=== PATIENT | female | born 1965 | race Two or more races ===

== ENCOUNTER 2020-11-26 15:11 | Emergency (ER) | payer MEDICAID, OTHER ==
[~2020-11-26] VITALS: Ht 162.6 cm; Wt 131.5 kg
[2020-11-26] MEDS ORDERED: ASPirin 81 mg TAB PO ONE (15:30)
[2020-11-26 16:06] LABS: Basophils # (auto) 0.1 10 ^3/uL (0-0.2); Basophils % (auto) 0.7 % (0.0-2.0); Eosinophils # (auto) 0.1 10 ^3/uL (0-0.8); Eosinophils % (auto) 1.6 % (0.0-7.0); Hematocrit 41.8 % (36.0-46.0); Lymphocytes # (auto) 2.1 10 ^3/uL (0.4-5.4); Lymphocytes % (auto) 23.9 % (10.0-50.0); Mean Corpuscular Hemoglobin 29.7 pg (28.0-32.0); Mean Corpuscular Hgb Conc. 33.5 g/dL (32.0-36.0); Mean Corpuscular Volume 88.5 fL (80.0-100.0); Monocytes # (auto) 0.4 10 ^3/uL (0-1.3); Monocytes % (auto) 4.6 % (0.0-12.0); Neutrophils % (auto) 69.2 % (37.0-80.0); Nucleated Red Blood Cells % 0.1 %; Red Blood Cells 4.72 10^6/uL (4.0-5.20); Red Cell Distribution Width 13.7 % (11.8-14.3); White Blood Cell 8.7 10^3/uL (4.4-10.8)
[2020-11-26 16:25] LABS: Alanine Aminotransferase 50 U/L (13-56); Albumin 3.7 g/dL (3.4-5.0); Anion Gap 5 (5-15); Aspartate Aminotransferase 22 U/L (15-37); BUN/Creatinine Ratio 20.2; Blood Urea Nitrogen 17 mg/dL (7-18); Calcium 9.4 mg/dL (8.5-10.1); Carbon Dioxide 29 mmol/L (21-32); Chloride 108 mmol/L (98-107); GFR African American 90 mL/min; GFR Non-African American 75 mL/min; Glucose 112 mg/dL (74-106); Sodium 142 mmol/L (136-145)
[2020-11-26 16:30] LABS: Alkaline Phosphatase 105 U/L (45-117); Bilirubin, Total 0.6 mg/dL (0.2-1.0); Total Protein 7.1 g/dL (6.4-8.2)
[2020-11-26 19:38] VITALS: BP 152/81
== END 2020-11-26 19:45 | disposition home or self-care (01) ==
LOC: ER 15:11
DX: I24.9 Acute ischemic heart disease, unspecified (principal); I10 Essential (primary) hypertension
CPT/HCPCS: 36415; 71045; 80053; 84484; 85025; 93005

== ENCOUNTER 2023-02-27 22:31 | Emergency (ER) | payer MEDICAID ==
[~2023-02-27] VITALS: Ht 162.6 cm; Wt 134.8 kg
[2023-02-27 22:35] VITALS: BP 158/82; PULSE 18; RESP 18; TEMP 98.3; O2SAT 95
== END 2023-02-28 00:18 | disposition home or self-care (01) ==
LOC: ER 22:31
DX: S60.352A Superficial foreign body of left thumb, initial encounter (principal); M25.561 Pain in right knee; M25.562 Pain in left knee; I10 Essential (primary) hypertension; W22.8XXA Striking against or struck by other objects, initial encounter; Y93.89 Activity, other specified; Y92.89 Other specified places as the place of occurrence of the external cause; Y99.8 Other external cause status

== ENCOUNTER 2025-01-02 18:48 | Emergency (ER) | payer MEDICAID ==
[~2025-01-02] VITALS: Ht 162.6 cm; Wt 134.9 kg
--- NOTE | 2025-01-02 19:27 | DVH ---
CLINICAL HISTORY: left ankle pain TECHNIQUE: 3 views of the left ankle were obtained. COMPARISON: XY L FOOT 3 VIEW XRAY on DOS: 01/02/25 FINDINGS: No acute fracture or dislocation is seen. The ankle mortise is intact. There are mild degenerative ch anges of the tibiotalar joint with osteophyte formation. There is generalized soft tissue swelling. T here is a small to moderate plantar calcaneal spur. Is [id number] enthesophyte at the calcaneal insertion of the Achilles tendon. IMPRESSION: Soft tissue swelling. No acute fracture seen.
--- NOTE | 2025-01-02 19:27 | DVH ---
CLINICAL HISTORY: left foot pain TECHNIQUE: 3 views of the left foot were obtained. COMPARISON: XY L ANKLE 3 VIEW on DOS: 01/02/25 FINDINGS: There is an acute oblique fracture through the mid / distal shaft of the 5th metatarsal with slight d isplacement. No additional fracture is seen. There is small to moderate plantar calcaneal spur. Ther e is small to moderate enthesophyte of the calcaneus near the Achilles tendon. There is soft tissue s welling. There are mild degenerative changes of the 1st MTP joint with osteophyte formation. IMPRESSION: Acute 5th metatarsal fracture.
[2025-01-02] MEDS ORDERED: IBUP-1456 PO (21:28)
--- NOTE | 2025-01-02 21:29 | ED.PDOC ---
Musculoskeletal HPI Comments 59-YEAR-OLD FEMALE PRESENTS TO ER WITH COMPLAINTS OF LEFT FOOT PAIN X FIVE DAYS. PATIENT REPORTS SHE STARTED EXPERIENCING PAIN/SWELLING TO LATERAL ASPECT OF LEFT FOOT WITH RADIATION TOWARDS HER LEFT ANKLE S/P ROLLING HER LEFT FOOT/LEFT ANKLE INWARDS WHILE ACCIDENTALLY STEPPING INTO A HOLE IN HER YARD 5 DAYS AGO. SHE RATES HER CURRENT PAIN A 5/10 AND PRESENTS TO ER AMBULATORY ON ARRIVAL, FAVORING RIGHT LEG ON AMBULATION. DENIES NUMBNESS/TINGLING AND ENDORSES NO FURTHER SYMPTOMS/COMPLAINTS Chief Complaint: Lower Extremity Time Seen by MD: 18:55 Primary Care Provider: DR. OSBORNE Reviewed Notes: Nurses Notes, Medications, Allergies Allergies: Coded Allergies: No Known Drug Allergy (Verified Allergy, Unknown, 11/26/20) Home Meds Active Scripts Ibuprofen (Ibuprofen) 800 Mg Tab, 1 TAB PO TID PRN, #30 TAB 0 Refills Prov:KERRY KEITA 01/02/25 Information Source: Patient Mode of Arrival: Ambulatory Past Medical History PAST MEDICAL HISTORY: HTN Surgical History: Denies all surgeries [employer] History: No Pertinent [employer] History Family History Family History: Unknown Social History Smoker: Non-Smoker Alcohol: Denies ETOH Use Drugs: Denies Drug Use Lives In: Home Constitutional: denies: chills, diaphoresis, fatigue, fever, malaise, sweats, weakness, others EENTM: denies: blurred vision, double vision, ear bleeding, ear discharge, ear drainage, ear pain, ear ringing, eye pain, eye redness, hearing loss, mouth pain, mouth swelling, nasal discharge, nose bleeding, nose congestion, nose pain, photophobia, tearing, throat pain, throat swelling, voice changes, others Respiratory: denies: cough, hemoptysis, orthopnea, SOB at rest, shortness of breath, SOB with excertion, stridor, wheezing, others Cardiovascular: denies: chest pain, dizzy spells, diaphoresis, Dyspnea on exertion, edema, irregular heart beat, left arm pain, lightheadedness, palpitations, PND, syncope, others Gastrointestinal: denies: abdomen distended, abdominal pain, blood streaked bowels, constipated, diarrhea, dysphagia, difficulty swallowing, hematemesis, melena, nausea, poor appetite, poor fluid intake, rectal bleeding, rectal pain, vomiting, others Genitourinary: denies: abnormal vagina bleeding, burning, dyspareunia, dysuria, flank pain, frequency, hematuria, incontinence, pain, , vagina discharge, urgency, others Neurological: denies: dizziness, fainting, headache, left sided numbness, left sided weakness, numbness, paresthesia, pre-existing deficit, right sided numbness, right sided weakness, seizure, speech problems, tingling, tremors, weakness, others Musculoskeletal: reports: others ( STATED IN HPI) Integumetry: reports: others ( STATED IN HPI) Allergic/Immunocompromised: denies: Difficulty Healing, Frequent Infections, Hives, Itching, others Hematologic/Lymphatic: denies: anemia, blood clots, easy bleeding, easy bruising, swollen glands, others Endocrine: denies: excessive hunger, excessive sweating, excessive thirst, excessive urination, flushing, intolerance to cold, intolerance to heat, unexplained weight gain, unexplained weight loss, others Psychiatric: denies: anxiety, bipolar disorder, depression, hopeless, panic disorder, schizophrenia, sleepless, suicidal, others Physical Exam General Appearance: Mild Distress HEENT: PERRL/EOMI Neck: Full Range of Motion, Non-Tender, Normal Respiratory: Chest Non-Tender, Lungs Clear, No Accessory Muscle Use, No Respiratory Distress, Normal Breath Sounds Cardiovascular: No Murmur, No Gallop, Regular Rate/Rhythm Breast Exam: Deferred Gastrointestinal: NOT DONE Genitalia: Deferred Pelvic: Deferred Rectal: Deferred Extremities: No calf tenderness, Normal capillary refill, Normal range of motion Musculoskeletal : Extremity Location: Foot (TTP/MILD SWELLING NOTED TO SHAFT OF LEFT 5TH METATARSAL. TTP/MILD SWELLING ALSO NOTED TO LEFT MEDIAL MALLEOLUS. NO OTHER TTP/SKIN CHANGES TO LEFT LOWER EXTREMITY NOTED. PULSES INTACT. PATIENT FAVORS RIGHT LEG ON AMBULATION ) Neurologic: Alert, No Motor Deficits, No Sensory Deficits Cerebellar Function: Normal Reflexes: Normal Skin: Dry, Normal Color, Warm Peripheral Pulses: 2+ femoral (R), 2+ femoral (L), 2+ dorsalis pedis (R), 2+ dorsalis pedis (L), 2+ Radial (R), 2+ Radial (L), 2+ Brachial (R), 2+ Brachial (L) Lymphatic: No Adenopathy Was a procedure done? Was a procedure done?: No Sedation Sedation?: No Differential Diagnosis EXT Differential Diagnosis: Dislocation, Laceration, Neurovascular injury X-Ray, Labs, Meds, VS Vital Signs Date Time Temp Pulse Resp B/P (MAP) Pulse Ox O2 Delivery O2 Flow Rate FiO2 01/02/25 18:49 98.0 77 15 153/84 94 98.0 PATIENT: HARDY TOBARACCT: [id number]: [id number] : 1965 LOC: ER ROOM / BED: / AGE / SEX: 59 / F ADM STATUS: REG ER SERVICE 54 ORDERING PHYSICIAN: KERRY KEITA PROCEDURE(s): LFOOT - L FOOT 3 VIEW XRAY REASON: left foot pain ORDER NUMBER(s): [id number], ACCESSION NUMBER(s): [id number] CLINICAL HISTORY: left foot pain TECHNIQUE: 3 views of the left foot were obtained. COMPARISON: XY L ANKLE 3 VIEW on DOS: 01/02/25 FINDINGS: There is an acute oblique fracture through the mid / distal shaft of the 5th metatarsal with slight displacement. No additional fracture is seen. There is small to moderate plantar calcaneal spur. There is small to moderate enthesophyte of the calcaneus near the Achilles tendon. There is soft tissue swelling. There are mild degenerative changes of the 1st MTP joint with osteophyte formation. IMPRESSION: Acute 5th metatarsal fracture. ATED BY: CHANDRAKANT CHANDRA MD DICTATED DATE/TIME: 01/02/251924 SIGNED BY: CHANDRAKANT CHANDRA MD SIGNED DATE/TIME: 01/02/251924 CC: PATIENT: HARDY TOBAR ACCT: [id number] UNIT: [id number] : 1965 LOC: ER ROOM / BED: / AGE / SEX: 59 / F ADM STATUS: REG ER SERVICE 54 ORDERING PHYSICIAN: KERRY KEITA PROCEDURE(s): LANKL - L ANKLE 3 VIEW REASON: left ankle pain ORDER NUMBER(s): [id number], ACCESSION NUMBER(s): [id number] CLINICAL HISTORY: left ankle pain TECHNIQUE: 3 views of the left ankle were obtained. COMPARISON: XY L FOOT 3 VIEW XRAY on DOS: 01/02/25 FINDINGS: No acute fracture or dislocation is seen. The ankle mortise is intact. There are mild degenerative changes of the tibiotalar joint with osteophyte formation. There is generalized soft tissue swelling. There is a small to moderate plantar calcaneal spur. Is [id number] enthesophyte at the calcaneal insertion of the Achilles tendon. IMPRESSION: Soft tissue swelling. No acute fracture seen. ATED BY: CHANDRAKANT CHANDRA MD DICTATED DATE/TIME: 01/02/251923 SIGNED BY: CHANDRAKANT CHANDRA MD SIGNED DATE/TIME: 01/02/251923 CC: LEFT FOOT AND LEFT ANKLE X-RAY REVIEWED LEFT POSTERIOR SHORT-LEG SPLINT APPLIED CRUTCHES ORDERED, PATIENT EDUCATED ON PROPER USE. WAS ADVISED ON USE AT ALL TIMES/NONWEIGHTBEARING LEFT LEG PATIENT NEUROVASCULARLY INTACT ADVISED ON ELEVATION AND ALTERNATE ICE ON/OFF NEEDED FOR PAIN/SWELLING ADVISED TO FOLLOW UP WITH PCP AND PODIATRY/ORTHOPEDICS IN 1-2 DAYS PATIENT VERBALIZED UNDERSTANDING AND AGREEABLE WITH CURRENT PLAN OF CARE ADVISED TO RETURN TO ER IMMEDIATELY IF SYMPTOMS WORSEN Images Reviewed?: Images reviewed and evaluated by me Time of 1ST Reevaluation: 21:04 Reevaluation 1ST: N/A Patient Education/Counseling: Diagnosis, Treatment, Prognosis, Need For Follow Up Family Education/Counseling: No Family Present Departure 1 Departure Time of Disposition: 21:23 Impression: Primary Impression: Fracture of metatarsal of left foot, closed Qualified Codes: S92.352A - Displaced fracture of fifth metatarsal bone, left foot, initial encounter for closed fracture Additional Impression: Left ankle sprain Qualified Codes: S93.402A - Sprain of unspecified ligament of left ankle, initial encounter Disposition: HOME / SELF CARE / HOMELESS Condition: Stable e-Prescriptions Ibuprofen (Ibuprofen) 800 Mg Tab 1 TAB PO TID PRN, #30 TAB 0 Refills Prov: KERRY KEITA 01/02/25 Discharged With: Friend Critical Care Note Critical Care Time?: No Stability Stability form required: No Heart Score Heart Score: Heart Score Response (Comments) Value History N/A 0 EKG N/A 0 Age N/A 0 Risk Factors N/A 0 Troponin N/A 0 Total 0 KERRY KEITA Jan 02, 2025 21:29
[2025-01-02 22:15] VITALS: BP 149/67; PULSE 66; RESP 18; TEMP 97.8; O2SAT 95
== END 2025-01-02 22:19 | disposition home or self-care (01) ==
LOC: ER 18:48
DX: S92.352A Displaced fracture of fifth metatarsal bone, left foot, initial encounter for closed fracture (principal); S93.402A Sprain of unspecified ligament of left ankle, initial encounter; Z79.899 Other long term (current) drug therapy; I10 Essential (primary) hypertension; W22.8XXA Striking against or struck by other objects, initial encounter; Y93.89 Activity, other specified; Y92.89 Other specified places as the place of occurrence of the external cause; Y99.8 Other external cause status
CPT/HCPCS: 29125; 29515; 73610; 73630; 96374; 99291; 99292